=== PATIENT | female | born 1955 | race Caucasian/White ===

== ENCOUNTER 2017-09-08 03:56 | Inpatient (IN) | payer MEDICAID ==
[~2017-09-08] VITALS: Ht 165.1 cm; Wt 68.0 kg
[2017-09-08] VITALS: BP 123/58
[2017-09-08] MEDS ORDERED: ZITHROMAX250 MG PO (04:17)
[2017-09-08] MEDS ORDERED: ROCEPHIN 1 GM/D51 G1 IV (04:18)
[2017-09-08] MEDS ORDERED: AMOXICILLIN875 MG PO (04:19)
[2017-09-08] MEDS ORDERED: METHADONE 10 MG10 MG PO (04:20)
[2017-09-08] MEDS ORDERED: IPRAT-ALBUT 0.5-3 ML UPD (04:22)
[2017-09-08] MEDS ORDERED: NEURONTIN600 MG PO (04:24)
[2017-09-08] MEDS ORDERED: HYDROCODONE-APA1 TAB PO (04:24)
[2017-09-08] MEDS ORDERED: OXYCONTIN15 MG PO (04:25)
[2017-09-08 04:57] VITALS: BP 122/84; BMI 25.0
[2017-09-08 09:03] LABS: HEMATOCRIT 38.6 % (36.0-48.0); HEMOGLOBIN 12.3 g/dL (12-16); LYMPHOCYTES 31.9 % (15-50); MCH 30.7 pg (26.0-34.0); MCHC 31.9 g/dL (31.0-37.0); MCV 96.3 fL (80.0-100.0); MEAN PLATELET VOLUME 9.7 fL (7.4-10.4); NEUTROPHILS 48.4 % (40-80); PLATELET COUNT 166 10x3/uL (130-400); RBC 4.01 10x6/uL (4.00-5.40); RDW 14.8 % (11.5-14.5); WBC 4.8 10x3/uL (4.8-10.8)
[2017-09-08 09:27] LABS: ALBUMIN 3.1 g/dL (3.4-5.0); ALKALINE PHOSPHATASE 70 U/L (46-116); ALT (SGPT) 13 U/L (10-68); BILIRUBIN - TOTAL 0.39 mg/dL (0.2-1.3); CALC OSMOLALITY 277 mosm/kg (275-300); CARBON DIOXIDE 37.1 mmol/L (21.0-32.0); CHLORIDE - SERUM 100 mmol/L (98-107); CREATININE - SERUM 0.8 mg/dL (0.6-1.3); GLUCOSE 85 mg/dL (74-106); POTASSIUM - SERUM 3.7 mmol/L (3.5-5.1); PROTEIN - SERUM 6.5 g/dL (6.4-8.2); SODIUM 140 mmol/L (136-145); UREA NITROGEN 12 mg/dL (7-18); eGFR NON AFRICAN AMERICAN 77 mL/min (90-120)
[2017-09-08 10:40] LABS: APPEARANCE CLEAR (CLEAR); BILIRUBIN NEGATIVE (NEGATIVE); COLOR YELLOW (YELLOW); GLUCOSE NEGATIVE (NEGATIVE); KETONE NEGATIVE (NEGATIVE); NITRITE NEGATIVE (NEGATIVE); PROTEIN 1+ mg/dL (NEGATIVE); SPECIFIC GRAVITY 1.005 (1.005-1.020); UROBILINOGEN NORMAL (NORMAL)
[2017-09-08 10:42] LABS: BACTERIA FEW /hpf (NONE SEEN); EPITHELIAL CELLS 0-5 /hpf (0-5); RED CELLS - URINE 0-5 /hpf (0-5)
[2017-09-08 14:18] VITALS: Ht 165.1 cm; Wt 68.0 kg
[2017-09-08 20:00] VITALS: BP 110/56
[2017-09-09] VITALS: BP 110/56
[2017-09-09 04:00] VITALS: BP 130/57
[2017-09-09 08:47] VITALS: BP 114/52
[2017-09-09 18:42] VITALS: BP 120/64
== END 2017-09-09 21:21 | disposition home or self-care (01) | DRG 694 ==
LOC: D.MS 03:56
PROVIDERS: Internal Medicine Nephrology
DX: N13.1 Hydronephrosis with ureteral stricture, not elsewhere classified (principal); C79.9 Secondary malignant neoplasm of unspecified site; C53.9 Malignant neoplasm of cervix uteri, unspecified; N13.9 Obstructive and reflux uropathy, unspecified; R10.2 Pelvic and perineal pain; J44.9 Chronic obstructive pulmonary disease, unspecified; Z72.0 Tobacco use